=== PATIENT | female | born 1970 | race Asian ===

== ENCOUNTER 2020-12-08 18:23 | Emergency (ER) | payer BC ==
[2020-12-08 18:42] VITALS: BP 121/77; PULSE 77; TEMP 97.9; BMI 27.1
[2020-12-08 21:10] LABS: BASO % 0.5 % (0-2.0); EOS % 2.4 % (0-4.5); HEMATOCRIT 35.1 % (32.4-45.2); LYMPH % 33.8 % (8-40); MCH 29.4 pg (25.7-33.7); MCHC 34.2 g/dl (32.0-36.0); MEAN CELL VOLUME 86.1 fl (80-96); MEAN PLT VOLUME 7.4 fl (7.5-11.1); NEUT % 54.3 % (42.8-82.8); PLATELET COUNT 257 10^3/uL (134-434); RBC 4.07 M/mm3 (3.60-5.2); RDW 13.5 % (11.6-15.6); WHITE BLOOD COUNT 5.3 K/mm3 (4.0-10.0)
[2020-12-08 21:21] LABS: EPI CELLS 8 /uL (0-25.1); HYALINE CASTS 0 /uL (0-3.1); URINE APPEARANCE CLEAR; URINE BACTERIA 131 /uL (0-1359); URINE BILIRUBIN NEGATIVE (NEGATIVE); URINE COLOR YELLOW; URINE GLUCOSE (UA) NEGATIVE (NEGATIVE); URINE KETONE NEGATIVE (NEGATIVE); URINE LEUK ESTERASE 1+ (NEGATIVE); URINE NITRITE NEGATIVE (NEGATIVE); URINE PROTEIN NEGATIVE (NEGATIVE); URINE UROBILINOGEN 0.2 mg/dL (0.2-1.0); URINE WBC 18 /uL (0-25.8)
[2020-12-08 21:28] LABS: CHLORIDE 105 mmol/L (98-107); SODIUM 140 mmol/L (136-145)
[2020-12-08 21:30] LABS: ANION GAP 5 MMOL/L (8-16); BLOOD UREA NITROGEN 8.3 mg/dL (7-18); CALCIUM 8.8 mg/dL (8.5-10.1); CO2 30 mmol/L (21-32); GLUCOSE,RANDOM 91 mg/dL (74-106)
[2020-12-08 21:33] LABS: CREATININE 0.9 mg/dL (0.55-1.3); SGOT/AST 23 U/L (15-37); SGPT/ALT 25 U/L (13-61)
[2020-12-08 21:35] LABS: BILIRUBIN,TOTAL 0.4 mg/dL (0.2-1); TOT PROT 8.1 g/dl (6.4-8.2)
[2020-12-08 21:36] LABS: ALK PHOS 46 U/L (45-117)
[2020-12-08] MEDS ORDERED: NAPROXEN 500 MG TABLET PO ONE (21:42)
[2020-12-08] MEDS ORDERED: NAPROXEN 500 MG TABLET ONE (21:50)
[2020-12-08 23:27] LABS: URINE RBC 70.3 /uL (0-23.9)
== END 2020-12-08 22:08 | disposition home or self-care (01) ==
LOC: JER 18:23
DX: R07.89 Other chest pain (principal); S46.912A Strain of unspecified muscle, fascia and tendon at shoulder and upper arm level, left arm, initial encounter; Y99.9 Unspecified external cause status
CPT/HCPCS: 36415; 71046-TC-FY; 80053; 81003; 82550; 82553; 84484; 84703; 85025; 93005; 93010; 99285-25